=== PATIENT | female | born 1975 | race Hispanic/Latino ===

== ENCOUNTER 2024-03-05 18:57 | Emergency (ER) | payer BC ==
--- OUTSIDE RECORDS SUMMARY | 2024-03-05 19:01 | XMS REPORT | Continuity of Care Document ---
Author Name Unknown Address [address] [facility] [address] [place] [id number] [facility] thconnect Address [address] [facility] [address] [place] [address] Care Team Providers Care Police Captain Precinct Name Role Phone [email or web address] Attending Clinician Unavaila ble [email or web address]_Karuthyala_S Admitting Clinician Unavaila ble Payers Payer Name Policy Type Policy Number Effective Date Expirati on Date Source CIGNA C1 [id number] [facility] CIGNA II [id number] 2019 00:00:00 Problems Condition Name Condition Details Condition Category Status Onset Date Resolution Date Last Treatment Date Treating Clinician Comments Source [id number] Sciatica of right side Problem Active [facility] [id number] Primary osteoarthr itis of right knee Problem Active [facility] [id number] Primary osteoarthr itis of left knee Problem Active [facility] Allergies, Adverse Reactions, Alerts Allergy Name Allergy Type Status Severity Reaction(s) Onset Date Inactive Date Treating Clinician Comments Source NO KNOWN ALLERGIE S Drug Class Active [facility] Social History Social Habit Start Date Stop Date Quantity Comments Source Sex Assigned At [facility] History of Tobacco Use Never Smoker [facility] Smoking Status Start Date Stop Date Source Never Smoker [facility] Medications Ordered Medication Name Filled Medication Name Start Date Stop Date Current Medication? Ordering Clinician Indication Dosage Frequency Signature (SIG) Comments Components Source Meloxicam 7.5 MG Meloxicam 7.5 MG 2019-08 00:00: 00 06-26 00:00 :00 No 1{table t} QD Meloxicam 7.5 MG [facility] Meloxicam 7.5 MG Meloxicam 7.5 MG 04-16 00:00: 00 05-16 00:00 :00 No 1{table t} QD Meloxicam 7.5 MG Lisinopril/ Hctz Lisinopril/ Hctz No Lisinopril /Hctz Meloxicam Meloxicam No Meloxicam [facility] Vital Signs Vital Name Observation Time Observation Value Comments S alejandra height 2020-05-28 13:00:00 59 [in_i] Commo n [facility] weight 2020-05-28 13:00:00 162 [lb_av] Comm on [facility] temperature 2020-05-28 13:00:00 97.7 [degF] Com [facility] bmi 2020-05-28 13:00:00 32.72 kg/m2 Comm on [facility] blood pressure systolic 2020-05-28 13:00:00 136 mm[Hg] Common [facility] blood pressure diastolic 2020-05-28 13:00:00 73 mm[Hg] Common [facility] height 2020-04-16 14:00:00 59 [in_i] Commo n [facility] weight 2020-04-16 14:00:00 170 [lb_av] Comm on [facility] temperature 2020-04-16 14:00:00 97.1 [degF] Com [facility] bmi 2020-04-16 14:00:00 34.33 kg/m2 Comm on [facility] blood pressure systolic 2020-04-16 14:00:00 134 mm[Hg] [facility] pressure diastolic 2020-04-16 14:00:00 72 mm[Hg] [facility] Encounters Start Date/Time End Date/Time Encounter Type Admission Type Attending Clinicians Care Facility Care Department Encounter ID Source 2024-03-03 08:44:00 Outpatient [facility] [id number] [facility] 2024-03-02 15:23:00 Outpatient [facility] [id number] [facility] 2021-08-27 11:59:25 Outpatient [facility] [id number] [facility] 2021-08-27 11:46:11 Outpatient [facility] [id number] [facility] 2023-06-01 00:00:00 2023-06-01 00:00:00 Outpatient GC_GCBZW_Ka diyala_S PRIV PRIV [id number] [facility] 2023-05-31 00:00:00 2023-05-31 00:00:00 Outpatient GC_GCBZW_Ka diyala_S PRIV PRIV [id number] [facility] 2020-05-28 00:00:00 2020-05-28 00:00:00 OFFICE VISIT ESTAB PT LEVEL 4 [facility] ST[facility]C [id number] [facility] 2020-04-16 00:00:00 2020-04-16 00:00:00 OFFICE VISIT NEW PT LEVEL 4 [facility] ST[facility] [id number] [facility] 2020-03-19 13:15:00 2020-03-19 13:15:00 Outpatient R [facility] [id number] [facility] 2020-03-19 13:15:00 2020-03-19 13:15:00 Outpatient R [facility] [id number] [facility]
[2024-03-05] MEDS ORDERED: FAMOTIDINE 20 MG/2 ML VIAL IV ONE (19:05)
[2024-03-05] MEDS ORDERED: METHYLPREDNISOLONE 125 MG INJ ONE (19:05)
[2024-03-05] MEDS ORDERED: DIPHENHYDRAMINE 50 MG/ML VIAL ONE (19:05)
[2024-03-05] MEDS ORDERED: NA CHLORIDE 0.9% 1,000 ML ONE (19:18)
--- NOTE | 2024-03-05 20:07 | ER ---
Nurse's Notes [facility] Name: Shani Payton Age: 49 yrs Sex: Female : 1975 Arrival Date: 03/05/2024 Time: 18:57 Bed 11 Private MD: Diagnosis: Acute allergic reaction, acute allergic hives Presentation: 03/05 19:17 Chief complaint: Patient states: went to eat with and think I am having an allergic vc1 reaction to the shrimp. I feel like my throat is closing. Coronavirus screen: Client denies travel out of the [place] in the last 14 days. At this time, the client does not indicate any symptoms associated with coronavirus-19. Ebola Screen: Patient negative for fever greater than or equal to 101.5 degrees Fahrenheit, and additional compatible Ebola Virus Disease symptoms Patient denies exposure to infectious person. Patient denies travel to an Ebola-affected area in the 21 days before illness onset. No symptoms or risks identified at this time. Onset: The symptoms/episode began/occurred acutely. Anaphylaxis evaluation, no signs or symptoms of anaphylaxis were noted. Initial Sepsis Screen: Does the patient meet any 2 criteria? No. Patient's initial sepsis screen is negative. Does the patient have a suspected source of infection? No. Patient's initial sepsis screen is negative. Risk Assessment: Do you want to hurt yourself or someone else? Patient reports no desire to harm self or others. Onset of symptoms was March 05, 2024. 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 - Infectious Disease History:: Denies. - Social history:: Smoking status: Patient denies any tobacco usage or history of. - Family history:: not pertinent. Screenin:[address] [facility] ED Fall Risk Assessment (Adult) History of falling in the last 3 months, vc1 including since admission No falls in past 3 months (0 pts) Confusion or Disorientation No (0 pts) Intoxicated or Sedated No (0 pts) Impaired Gait No (0 pts) Mobility Assist Device Used No (0 pt) Altered Elimination No (0 pt) Score/Fall Risk Level 0 - 2 = Low Risk Oriented to surroundings, Maintained a safe environment, Educated pt \\T\\ family on fall prevention, incl call for assistance when getting out of bed. Abuse screen: Denies threats or abuse. Nutritional screening: No deficits noted. Tuberculosis screening: No symptoms or risk factors identified. Assessment: 19:30 General: Appears uncomfortable, well groomed, well developed, well nourished, Behavior me1 is cooperative, appropriate for age, anxious, Reports went to eat, had shrimp, and has hives on her face and feels like her throat is closing up. Pain: Denies pain. Neuro: Level of Consciousness is awake, alert, obeys commands, Oriented to person, place, time, situation, Appropriate for age. Cardiovascular: Patient's skin is warm and dry. Respiratory: Reports shortness of breath "feels like my throat is closing up" Airway is patent Trachea midline Respiratory effort is even, unlabored, Respiratory pattern is regular, symmetrical, Breath sounds are clear bilaterally. GI: No signs and/or symptoms were reported involving the gastrointestinal system. : No signs and/or symptoms were reported regarding the genitourinary system. EENT: No signs and/or symptoms were reported regarding the EENT system. Derm: Skin is intact, Skin is dry, Rash noted that is itchy, red, raised, on face. Musculoskeletal: No signs and/or symptoms reported regarding the musculoskeletal system. Vital Signs: 19:17 BP 158 / 99; Pulse 103; Resp 18; Temp 97; Pulse Ox 100% ; Weight 73.94 kg; Height 4 ft. vc1 11 in. ; 19:49 BP 146 / 84; Pulse 95; Resp 17; Pulse Ox 100% ; me1 20:32 BP 152 / 78; Pulse 98; Resp 16; Temp 98.4; Pulse Ox 100% on R/A; me1 19:17 Body Mass Index 32.92 (73.94 kg, 149.86 cm) vc1 [place] Coma Score: 20:03 Eye Response: spontaneous(4). Motor Response: obeys commands(6). Verbal Response: sp4 oriented(5). Total: 15. ED Course: 19:00 Patient arrived in ED. gm2 19:04 Cesar Tang MD is Attending Physician. sp4 19:08 Inserted saline lock: 22 gauge in right antecubital area, using aseptic technique. oe Flushed with 10 mL NS. 19:19 Joanna Martinez, RN is Primary Nurse. me1 19:22 Triage completed. vc1 19:30 No provider procedures requiring assistance completed. me1 19:30 Patient has correct armband on for positive identification. Bed in low position. Call me1 light in reach. Side rails up X2. Provided Education on: POC. Verbalized understanding. . Client placed on continuous cardiac and pulse oximetry monitoring. NIBP monitoring applied. Pulse ox on. NIBP on. 20:34 IV discontinued, intact, bleeding controlled, No redness/swelling at site. Pressure me1 dressing applied. 20:34 Arm band placed on. me1 Administered Medications: 19:13 Drug: MethylPrednisoLONE IVP 125 mg IVP once Route: IVP; Site: right antecubital; vc1 19:37 Follow up: Response: No adverse reaction; Marked relief of symptoms me1 19:13 Drug: diphenhydrAMINE IVP 50 mg IVP once Route: IVP; Site: right antecubital; vc1 19:37 Follow up: Response: No adverse reaction me1 19:13 Drug: Famotidine IVP 20 mg IVP once; dilute with 10 mL 0.9% NaCl; give over 2 minutes vc1 Route: IVP; Site: right antecubital; 19:37 Follow up: Response: No adverse reaction ok1 19:22 Drug: NS 0.9% IV 1000 ml IV at 1 bolus Per protocol; 1000 mL bolus Route: IV; Rate: 1 me1 bolus; Site: right antecubital; Medication: 19:30 VIS not applicable for this client. me1 Outcome: 20:06 Discharge ordered by . sp4 20:34 Discharged to home ambulatory, me1 20:34 Condition: stable 20:34 Discharge instructions given to patient, Instructed on discharge instructions, follow up and referral plans. medication usage, Demonstrated understanding of instructions, follow-up care, medications, Prescriptions given X 2, 20:35 Patient left the ED. me1 Signatures: Aguila Vanessa Vanessa, RN RN vc1 Cesar Tang MD MD sp4 Joanna Martinez, RN RN me1 Hoda Figueredo 2
--- NOTE | 2024-03-05 20:07 | EDPHYS ---
Physician Documentation [facility] Name: Shani Payton Age: 49 yrs Sex: Female : 1975 Arrival Date: 03/05/2024 Time: 18:57 Bed 11 Private MD: ED Physician Cesar Tang HPI: 03/05 20:02 This 49 yrs old Female presents to ER via Ambulatory with complaints of sp4 Allergic Reaction - throat closing up. 20:02 49-year-old female with acute facial redness and itching and hives after eating shrimp sp4 and cafeteria. Patient states she had mild trouble breathing. . [employer]CHITECT: 19:27 LMP N/A - Post-menopause, Not vc1 Historical: - Allergies: 19:23 No Known Allergies; vc1 - PMHx: 19:23 Hypertensive disorder; vc1 - PSHx: 19:23 None; vc1 - Immunization history:: Adult Immunizations up to date. - Infectious Disease History:: Denies. - Social history:: Smoking status: Patient denies any tobacco usage or history of. - Family history:: not pertinent. ROS: 20:03 Constitutional: Negative for fever, chills, and weight loss, Positive facial allergic sp4 hives, sensation of closing throat 20:03 All other systems are negative, Exam: 20:03 Constitutional: This is a well developed, well nourished patient who is awake, alert, sp4 and in no acute distress. Head/Face: Normocephalic, atraumatic. Positive diffuse facial hives with associated itching, Eyes: Pupils equal round and reactive to light, extra-ocular motions intact. Lids and lashes normal. Conjunctiva and sclera are not injected. Cornea within normal limits. Periorbital areas with no swelling, redness, or edema. ENT: Nares patent. No nasal discharge, no septal abnormalities noted. Tympanic membranes are normal and external auditory canals are clear. Oropharynx with no redness, swelling, or masses, exudates, or evidence of obstruction, uvula midline. Mucous membranes moist. Neck: Trachea midline, no thyromegaly or masses palpated, and no cervical lymphadenopathy. Supple, full range of motion without nuchal rigidity, or vertebral point tenderness. Chest/axilla: Normal chest wall appearance and motion. Nontender with no deformity. No lesions are appreciated. Cardiovascular: Regular rate and rhythm with a normal S1 and S2. No gallops, murmurs, or rubs. Normal PMI, no JVD. No pulse deficits. Respiratory: Lungs have equal breath sounds bilaterally, clear to auscultation and percussion. No rales, rhonchi or wheezes noted. No increased work of breathing, no retractions or nasal flaring. Abdomen/GI: Soft, with normal bowel sounds. No distension or tympany. No guarding or rebound. No evidence of tenderness throughout. Back: No spinal tenderness. No costovertebral tenderness. Skin: Warm, dry with normal turgor. Normal color with no rashes, no lesions, and no evidence of cellulitis. MS/ Extremity: Pulses equal, no cyanosis. Neurovascular intact. Full, normal range of motion. Neuro: Awake and alert, GCS 15, oriented to person, place, time, and situation. Cranial nerves II-XII grossly intact. Motor strength 5/5 in all extremities. Sensory grossly intact. Psych: Awake, alert, with orientation to person, place and time. Behavior, mood, and affect are within normal limits Vital Signs: 19:17 BP 158 / 99; Pulse 103; Resp 18; Temp 97; Pulse Ox 100% ; Weight 73.94 kg; Height 4 ft. vc1 11 in. ; 19:49 BP 146 / 84; Pulse 95; Resp 17; Pulse Ox 100% ; me1 20:32 BP 152 / 78; Pulse 98; Resp 16; Temp 98.4; Pulse Ox 100% on R/A; me1 19:17 Body Mass Index 32.92 (73.94 kg, 149.86 cm) vc1 [place] Coma Score: 20:03 Eye Response: spontaneous(4). Motor Response: obeys commands(6). Verbal Response: sp4 oriented(5). Total: 15. MDM: 19:05 Patient medically screened. sp4 20:03 Differential diagnosis: anaphylaxis, angioedema, bronchospasm, Status Asthmaticus sp4 urticaria. Data reviewed: vital signs, nurses notes, old medical records. Consideration of Admission/Observation. ED course: Facial urticaria resolved after medications. Patient stable for discharge home with 5 days of prednisone. Benadryl advised PRN . 03/05 19:05 Order name: Saline Lock; Complete Time: 19:08 sp4 Administered Medications: 19:13 Drug: MethylPrednisoLONE IVP 125 mg IVP once Route: IVP; Site: right antecubital; vc1 19:37 Follow up: Response: No adverse reaction; Marked relief of symptoms me1 19:13 Drug: diphenhydrAMINE IVP 50 mg IVP once Route: IVP; Site: right antecubital; vc1 19:37 Follow up: Response: No adverse reaction me1 19:13 Drug: Famotidine IVP 20 mg IVP once; dilute with 10 mL 0.9% NaCl; give over 2 minutes vc1 Route: IVP; Site: right antecubital; 19:37 Follow up: Response: No adverse reaction me1 19:22 Drug: NS 0.9% IV 1000 ml IV at 1 bolus Per protocol; 1000 mL bolus Route: IV; Rate: 1 me1 bolus; Site: right antecubital; Disposition Summary: 03/05/24 20:06 Discharge Ordered Notes: Location: Home sp4 Problem: new sp4 Symptoms: have improved sp4 Condition: Stable sp4 Diagnosis - Acute allergic reaction, acute allergic hives sp4 Followup: sp4 - With: Private Physician - When: As needed - Reason: Discharge Instructions: - Discharge Summary Sheet sp4 - Hives, [id number] sp4 Forms: - Patient Portal Instructions sp4 Prescriptions: - Benadryl 25 mg Oral capsule - take 1 capsule ORAL route every 8 hours As needed PRN itching or redness; 30 sp4 tablet; Refills: 0, Product Selection Permitted - Prednisone 20 mg Oral Tablet - take 2 tablets ORAL route once daily for 5 days; 10 tablet; Refills: 0, Product sp4 Selection Permitted Signatures: Patricia Valiente RN RN vc1 Cesar Tang MD MD sp4 Joanna Martniez RN RN me1
[2024-03-06 00:48] VITALS: O2SAT 100
[2024-03-06 00:50] VITALS: BP 152/78; TEMP 98.4
== END 2024-03-05 20:35 | disposition home or self-care (01) ==
LOC: ER 18:57
DX: L50.0 Allergic urticaria (principal)
CPT/HCPCS: J1200; J2919; J7030; 96374; 96375; 99284